=== PATIENT | male | born 1995 | race Caucasian/White ===

== ENCOUNTER 2020-08-02 18:21 | Emergency (ER) | payer BC ==
[~2020-08-02] VITALS: Ht 190.5 cm; Wt 111.1 kg
[2020-08-02] MEDS ORDERED: BUPROPION HCL100 MG PO (18:29)
[2020-08-02] MEDS ORDERED: LEVO-T25 MCG PO (18:29)
[2020-08-02] MEDS ORDERED: PROZAC 10 MG CA10 MG PO (18:30)
[2020-08-02] MEDS ORDERED: MINOCYCLINE (18:30)
[2020-08-02 19:21] LABS: HEMATOCRIT 47.2 % (42.0-52.0); HEMOGLOBIN 16.2 gm/dL (14.0-18.0); MCH 29.8 pg (26.0-34.0); MCHC 34.3 g/dL (28.0-37.0); NUCLEATED RBCS 0 /100WBC; PLATELET COUNT* 262 thou/uL (150-400); RBC 5.43 mil/uL (4.50-6.00); RDW-CV 12.6 % (10.5-14.5); WBC 15.8 thou/uL (4.0-11.0)
[2020-08-02 19:27] LABS: URINE BLOOD NEGATIVE (Negative); URINE CLARITY CLEAR; URINE COLOR YELLOW; URINE GLUCOSE-RANDOM NEGATIVE (Negative); URINE KETONES TRACE (Negative); URINE LEUKOCYTES-REFLEX NEGATIVE (Negative); URINE NITRITE-REFLEX NEGATIVE (Negative); URINE PROTEIN 2+ (Negative); URINE UROBILINOGEN 0.2 E.U./dl (0.2-1.0)
[2020-08-02 19:28] LABS: ICTOTEST (BILI CONFIRMATORY) Negative (Negative); URINE BILIRUBIN 1+ (Negative)
[2020-08-02 19:34] LABS: AMP/METHAMP Negative (Negative); BARBITURATES Negative (Negative); BENZODIAZEPINES Negative (Negative); COCAINE Negative (Negative); METHADONE Negative (Negative); OPIATES Negative (Negative); PCP Negative (Negative); SQUAMOUS NONE SEEN /LPF (0-3); THC Negative (Negative); URINE RBC 0-2 Rare /HPF (0-2); URINE WBC-REFLEX None Seen /HPF (0-5)
[2020-08-02 19:35] LABS: BACTERIA-REFLEX >30 Many /HPF (None Seen); FINE GRANULAR CASTS 0-3 Few /LPF (None Seen); MUCUS >6 Heavy strn/LPF (None Seen)
[2020-08-02 19:36] LABS: CRYSTALS None Seen /LPF (None Seen)
[2020-08-02 19:37] LABS: CALCIUM 8.9 mg/dL (8.5-10.1); CREATININE 1.3 mg/dL (0.6-1.3); POTASSIUM 4.1 mmol/L (3.5-5.1)
[2020-08-02 19:41] LABS: ALBUMIN 4.6 g/dL (3.4-5.0); TOTAL BILIRUBIN 0.6 mg/dL (<0.1-1.0); TOTAL PROTEIN 7.8 g/dL (6.4-8.2)
[2020-08-02 19:47] LABS: ABSOLUTE LYMPHOCYTES 0.5 thou/uL (0.8-5.3); ABSOLUTE MONOCYTES 0.2 thou/uL (0.0-1.2); ABSOLUTE NEUTROPHILS 15.2 thou/uL (1.6-8.1)
[2020-08-02 19:48] LABS: PLATELET ESTIMATE ADEQUATE
[2020-08-02 20:30] LABS: INFLUENZA A ANTIGEN Negative (Negative); INFLUENZA B ANTIGEN Negative (Negative)
[2020-08-02] MEDS ORDERED: CIPRO500 MG PO (20:35)
[2020-08-02] MEDS ORDERED: ONDANSETRON HCL4 M2 PO (20:35)
[2020-08-02] MEDS ORDERED: BENTYL 20 MG TA20 M1 PO (20:35)
[2020-08-02 21:22] VITALS: BP 118/70
== END 2020-08-02 21:24 | disposition home or self-care (01) ==
LOC: M.ERS 18:21
PROVIDERS: Nurse Practitioner Family
DX: N39.0 Urinary tract infection, site not specified (principal); R11.2 Nausea with vomiting, unspecified; R19.7 Diarrhea, unspecified; Z79.899 Other long term (current) drug therapy; Z20.828 Contact with and (suspected) exposure to other viral communicable diseases